=== PATIENT | male | born 1960 | race Caucasian/White ===

== ENCOUNTER → 2018-01-05 | Outpatient (CLI) | payer MEDICAID ==
[~2018-01-05] MED LIST: CATHETER FLUSH 10 ML SYR IV PRN; HYDR-2997 PO; OMEP20CA6 PO
[2018-01-05 09:07] VITALS: BP 124/80
--- NOTE | 2018-01-10 09:03 | STRESS TEST ---
DATE OF SERVICE: 01/05/2018 PROCEDURE: Resting and post exercise technetium-99m Tetrofosmin SPECT CT imaging. ORDERING PHYSICIAN: Lynda Cleaning APRN PRIMARY CARE PHYSICIAN: Luis Miguel Camarena APRN OTHER PHYSICIAN: Dr. Chen. CLINICAL DIAGNOSES: Chest pain, hypertension, hyperlipidemia, tobacco use. Baseline images were carried out after injection of 10.39 mCi of technetium-99m Tetrofosmin and this was followed by exercise on a treadmill. Heart rate responses to exercise are normal. Blood pressure response to exercise was somewhat hypertensive. There was considerable baseline artifact at peak exercise, but there did not appear to be significant ST segment depression. After the patient had attained more than 85% of maximum predicted heart rate, 29.4 mCi of technetium-99m Tetrofosmin were injected. The test was continued for another minute afterwards. The test was stopped on account of fatigue. There was no significant arrhythmia. Overall, he tolerated the procedure well. He attained 94% of maximum predicted heart rate and 11.7 METS of workload. Heart rate and blood pressure product was [address]. Review of images at rest and following stress does not indicate any significant perfusion defects consistent with significant myocardial ischemia or infarction. Gated images show normal global left ventricular systolic function and normal regional wall motion with left ventricular ejection fraction is calculated to be 59%. Left upper end diastolic volume is 77 mL. TID is absent (1.01). CONCLUSIONS: 1. No evidence of any significant myocardial ischemia or infarction on this study. 2. Normal regional wall motion. 3. Normal global left ventricular systolic function with a calculated ejection fraction of 59%. 4. Hypertensive blood pressure response to exercise. Job ID: [id number] DocumentID: [id number] Dictated Date: 01/10/2018 08:16:41 Spot Cleaner Date: 01/10/2018 09:03:12 Dictated By: LOUISA CHEN MD, MA, FACP, FACC,
== END ==
LOC: CARD 06:59
PROVIDERS: ATTEND Nurse Practitioner Family
DX: I10 Essential (primary) hypertension (principal); R07.89 Other chest pain; E78.5 Hyperlipidemia, unspecified; Z72.0 Tobacco use
CPT/HCPCS: 78452; 93017; 93306

== ENCOUNTER 2018-09-08 19:41 | Emergency (ER) | payer SELFPAY, MEDICAID | END 2018-09-08 21:58 | disposition home or self-care (01) | LOC: ER 19:41 ==

== ENCOUNTER → 2020-05-05 | Outpatient (CLI) | payer MEDICAID ==
[~2020-05-05] MED LIST changes: +AMOX-358 PO; -CATHETER FLUSH 10 ML SYR IV PRN; +METH4TAB PO
--- NOTE | 2020-05-05 11:02 | Diagnostic Imaging Report ---
CLINICAL INDICATION: Patient has chronic back pain. EXAM: MRI of the lumbar spine performed without IV contrast. Sagittal T2, sagittal T1, sagittal T2 fat-sat, and axial T2. COMPARISON: None. FINDINGS: There is no acute lumbar spine fracture or dislocation. There is small amount of Modic type I degenerative signal changes involving the L2-L3 and L3-L4 endplates. There is Modic type II degenerative signal changes seen from the T12-L5 levels. There is a small intraosseous hemangioma or focal fatty infiltration involving the L5 vertebra. The visualized portions of the distal thoracic spinal cord, conus medullaris, and cauda equina nerve roots are unremarkable. The conus medullaris tip is seen at the upper L1 vertebral body level. There is no significant paraspinal soft tissue abnormality. There are degenerative spurs and facet arthropathy involving the lumbar spine. L1-L2: There is no significant central spinal canal or neural foramen narrowing. There is no significant disc bulge. L2-L3: There is diffuse disc bulge with kdmk-nr-btjanyed loss of disc space height. There are disc spurs extending into the foraminal regions bilaterally. There is amhk-bq-mpyvezvk bilateral facet arthropathy. There is moderate right neural foramen narrowing and mild left neural foramen narrowing. There is dffn-ga-mjilxvgw central canal stenosis. L3-L4: There is mild diffuse disc bulge with small disc spurs extending into the foraminal regions bilaterally. There is mild bilateral neural foramen narrowing. There is mild bilateral facet arthropathy. There is no significant central canal narrowing. L4-L5: There is moderate bilateral facet arthropathy/hypertrophy. There is a diffuse disc bulge with mild loss of disc space height. There is no significant central canal narrowing. There is mild right neural foramen narrowing and fmbj-fz-sahssmfp left neural foramen narrowing. L5-S1: There is upvf-ut-uwmdouoq bilateral facet arthropathy. There is no significant central spinal canal or neural foramen narrowing. IMPRESSION: 1: There is moderate multilevel lumbar spine degenerative disc disease with diffuse disc bulges, disc spurs and facet arthropathy. This is described in detail above. Dictated by: Dictated on workstation # [id number]
== END ==
LOC: RAD 09:12
PROVIDERS: ATTEND Nurse Practitioner Family
DX: M47.817 Spondylosis without myelopathy or radiculopathy, lumbosacral region (principal); M51.36 Other intervertebral disc degeneration, lumbar region; M51.26 Other intervertebral disc displacement, lumbar region; M31.9 Necrotizing vasculopathy, unspecified; K59.9 Functional intestinal disorder, unspecified
CPT/HCPCS: 72148

== ENCOUNTER 2022-02-24 16:32 | Emergency (ER) | payer MEDICAID ==
[~2022-02-24] VITALS: Ht 180 cm; Wt 92.5 kg
[2022-02-24 17:01] LABS: BASOPHILS % (AUTO) 0 % (0-10); EOSINOPHILS # (AUTO) 0.1 10^3/uL (0.0-0.3); EOSINOPHILS % (AUTO) 1 % (0-10); HEMATOCRIT 44 % (40-54); HEMOGLOBIN 14.8 g/dL (13.3-17.7); LYMPHOCYTES # (AUTO) 1.7 10^3/uL (1.0-4.0); LYMPHOCYTES % (AUTO) 23 % (12-44); MEAN CORPUSCULAR HEMOGLOBIN 29 pg (25-34); MEAN CORPUSCULAR HGB CONC 34 g/dL (32-36); MEAN CORPUSCULAR VOLUME 86 fL (80-99); MEAN PLATELET VOLUME 9.6 fL (9.0-12.2); MONOCYTES # (AUTO) 0.5 10^3/uL (0.0-1.0); MONOCYTES % (AUTO) 7 % (0-12); NEUTROPHILS # (AUTO) 4.8 10^3/uL (1.8-7.8); NEUTROPHILS % (AUTO) 67 % (42-75); PLATELET COUNT 177 10^3/uL (130-400); WHITE BLOOD COUNT 7.2 10^3/uL (4.3-11.0)
--- NOTE | 2022-02-24 17:05 | ED Cardiac General ---
History of Present Illness General Chief Complaint: Chest Pain Stated Complaint: ARM NUMBNESS AND TINGLING, HIGH BLOOD PRESURE History of Present Illness Date Seen by Provider: Feb 24, 2022 Time Seen by Provider: 16:42 Initial Comments 62 year old male presents for numbness and tingling in left neck and arm for the last few weeks. No symptoms specifically today. Evaluated at [facility] and referred here. He has previously seen Dr. See for cardiac work-up and had a provider at [facility], he was on blood pressure medicine and a statin for cholesterol. He stopped both of these medications approximately 1 year ago. He does not take aspirin daily. Mother and father both have a history of CAD and are . He smokes approximately half pack of cigarettes daily and drinks alcohol approximately 4 days a week. He does aggressive strenuous work. No use of Nitro or dx of angina. Timing/Duration: other Severity: mild Activities at Onset: none NTG SL HAND MOLDER: No ASA po HAND MOLDER: Yes Associated Systoms: No Chest Pain, No Cough, No Diaphoresis, No Fever/Chills, No Malaise, No Nausea/Vomiting, No Shortness of Air, No Syncope, No Weakness (GARRICK ACEVES) Allergies and Home Medications Allergies Coded Allergies: NKANo Known Allergies (Verified Allergy, Unknown, 11/17/06) Patient Home Medication List Home Medication List Reviewed: Yes (GARRICK ACEVES) Amoxicillin/Potassium Clav (Augmentin 875-125 Tablet) 1 Each Tablet, 1 EACH PO BID Prescribed by: ANNI CEBALLOS on 09/08/182153 Ibuprofen (Ibuprofen) 800 Mg Tablet, 800 MG PO Q8H PRN for PAIN Prescribed by: GARRICK ACEVES on 02/24/221745 Lisinopril/Hydrochlorothiazide (Lisinopril-Hctz 10-12.5 mg Tab) 10 Mg-12.5 Mg Tablet, 1 EACH PO DAILY Prescribed by: GARRICK ACEVES on 02/24/221745 Methylprednisolone (Medrol) 4 Mg Tab.ds.pk, 4 MG PO UD Prescribed by: ANNI CEBALLOS on 09/08/182153 Omeprazole (Prilosec) 20 Mg Capsule.dr, 20 MG PO DAILY Prescribed by: MADDI PAN on 03/17/15 1430 Review of Systems Review of Systems Constitutional: no symptoms reported, see HPI Cardiovascular: See HPI; Denies Chest Pain (pain left jaw and left arm, intermittently) Gastrointestinal: No Symptoms Reported, See HPI (GARRICK ACEVES CINDY) All Other Systems Reviewed Negative Unless Noted: Yes (GARRICK ACEVES) Past Bgxjwiy-Sojndd-Jqdrpl Hx Seasonal Allergies Seasonal Allergies: No (KETANGARRICK WHITE) Past Medical History Surgeries: Yes (RIGHT HAND; EIGHT ELBOW; EGD) Respiratory: No Cardiac: No Neurological: No Reproductive Disorders: No Genitourinary: No Gastrointestinal: No Musculoskeletal: No Endocrine: No HEENT: No Cancer: No Psychosocial: No Integumentary: No Blood Disorders: No (KETANGARRICK WHITE) Family Medical History Reviewed Nursing Family Hx (GARRICK ACEVES CINDY) Physical Exam Vital Signs Vital Signs - First Documented 02/24/22 16:39 Temp 36.8 Pulse 82 Resp 14 B/P (MAP) 162/104 (123) Pulse Ox 98 O2 Delivery Room Air (MARYBETH MOREL MD) Vital Signs Capillary Refill : (GARRICK ACEVESP) Height, Weight, BMI Height: 5'11.00" Weight: 190lbs. oz. 86.534989og; BMI Method:Stated General Appearance: No Apparent Distress, WD/WN Neck: Full Range of Motion, Supple; No Limited Range of Motion; Tender Lateral (left); No Tender Midline Respiratory: Chest Non Tender, Lungs Clear, Normal Breath Sounds Cardiovascular: Regular Rate, Rhythm, No Edema, No Murmur, Normal Peripheral Pulses Gastrointestinal: Normal Bowel Sounds, Non Tender, Soft, Distended Neurologic/Psychiatric: Alert, Oriented x3, No Motor/Sensory Deficits, Normal Mood/Affect Skin: Normal Color, Warm/Dry (GARRICK ACEVES) Progress/Results/Core Measures Results/Orders Lab Results Laboratory Tests Test 02/24/22 16:50 Range/Units White Blood Count 7.2 4.3-11.0 10^3/uL Red Blood Count 5.07 4.30-5.52 10^6/uL Hemoglobin 14.8 13.3-17.7 g/dL Hematocrit 44 40-54 % Mean Corpuscular Volume 86 80-99 fL Mean Corpuscular Hemoglobin 29 25-34 pg Mean Corpuscular Hemoglobin Concent 34 32-36 g/dL Red Cell Distribution Width 13.2 10.0-14.5 % Platelet Count 177 130-400 10^3/uL Mean Platelet Volume 9.6 9.0-12.2 fL Immature Granulocyte % (Auto) 1 % Neutrophils (%) (Auto) 67 42-75 % Lymphocytes (%) (Auto) 23 12-44 % Monocytes (%) (Auto) 7 0-12 % Eosinophils (%) (Auto) 1 0-10 % Basophils (%) (Auto) 0 0-10 % Neutrophils # (Auto) 4.8 1.8-7.8 10^3/uL Lymphocytes # (Auto) 1.7 1.0-4.0 10^3/uL Monocytes # (Auto) 0.5 0.0-1.0 10^3/uL Eosinophils # (Auto) 0.1 0.0-0.3 10^3/uL Basophils # (Auto) 0.0 0.0-0.1 10^3/uL Immature Granulocyte # (Auto) 0.1 0.0-0.1 10^3/uL Prothrombin Time 13.5 12.2-14.7 SEC INR Comment 1.0 0.8-1.4 Activated Partial Thromboplast Time 32 24-35 SEC Sodium Level 142 135-145 MMOL/L Potassium Level 3.7 3.6-5.0 MMOL/L Chloride Level 106 98-107 MMOL/L Carbon Dioxide Level 23 21-32 MMOL/L Anion Gap 13 5-14 MMOL/L Blood Urea Nitrogen 15 7-18 MG/DL Creatinine 1.03 0.60-1.30 MG/DL Estimat Glomerular Filtration Rate 83 BUN/Creatinine Ratio 15 Glucose Level 87 70-105 MG/DL Calcium Level 9.8 8.5-10.1 MG/DL Corrected Calcium 8.5-10.1 MG/DL Magnesium Level 2.1 1.6-2.4 MG/DL Total Bilirubin 0.5 0.1-1.0 MG/DL Aspartate Amino Transf (AST/SGOT) 26 5-34 U/L Alanine Aminotransferase (ALT/SGPT) 32 0-55 U/L Alkaline Phosphatase 76 40-136 U/L Myoglobin 57.8 10.0-92.0 NG/ML Troponin I < 0.028 <0.028 NG/ML B-Type Natriuretic Peptide 30.8 <100.0 PG/ML Total Protein 7.2 6.4-8.2 GM/DL Albumin 4.6 H 3.2-4.5 GM/DL (MARYBETH MOREL MD) Vital Signs/I&O 02/24/22 02/24/22 16:39 17:59 Temp 36.8 Pulse 82 66 Resp 14 10 B/P (MAP) 162/104 (123) 120/86 Pulse Ox 98 93 O2 Delivery Room Air Room Air (MARYBETH MOREL MD) Progress Progress Note : Time: 16:42 Progress Note Patient seen and evaluated, will obtain EKG, chest x-ray, and labs. 1800 labs, EKG and chest x-ray all within normal, blood pressure improved after metoprolol 5 mg IV. Discussed importance of adhering to a DASH diet, taking blood pressure and cholesterol medicine as prescribed by his PCP or cardiolo gist, and keeping all follow up appts. Some of the neck pain is probably from arthritis or muscle strain for intensive work. Discharge instructions and return precautions reviewed with the patient. (GARRICK ACEVES) Initial ECG Impression Date: Feb 24, 2022 Initial ECG Impression Time: 16:47 Initial ECG Rate: 80 Initial ECG Rhythm: Normal Sinus Initial ECG Intervals: Normal Initial ECG Intervals AK 152, QRS 90, QT 374, QTc 409. [place] P 41 RR 11, T10. Initial ECG Impression: Normal Initial ECG Comparisson: Unchanged (GARRICK ACEVES) Diagnostic Imaging Diagonstic Imaging: Xray Plain Films/CT/US/NM/MRI: chest Comments NAME: DUNG REYNOLDS [facility] REC#: [id number] PT STATUS: REG ER : 1960 PHYSICIAN: GARRICK ACEVES ADMIT DATE: 02/24/22/ER Draft Date of Exam:02/24/22 CHEST 1 VIEW, AP/PA ONLY INDICATION: Chest pain. COMPARISON: 09/08/2018. TECHNIQUE: Single frontal radiograph of the chest dated 02/24/2022. FINDINGS: The cardiac silhouette is within normal limits in size. No significant pulmonary vascular congestion. The lungs are clear. No pleural effusion. No pneumothorax. No acute osseous abnormality. IMPRESSION: Similar-appearing examination without acute cardiopulmonary abnormality. Dictated on workstation # [id number] Dict: 02/24/221702 Trans: 02/24/221707 [id number] Interpreted by: DRU RINCON MD Electronically signed by: Reviewed: Reviewed by Me (GARRICK ACEVES) Departure Impression Primary Impression: CAD (coronary artery disease) Qualified Codes: I25.118 - Atherosclerotic heart disease of [place] coronary artery with other forms of angina pectoris Additional Impressions: Hypertension Qualified Codes: I10 - Essential (primary) hypertension Neck pain Disposition: HOME, SELF-CARE Condition: Improved Departure-Patient Inst. Decision time for Depature: 17:40 (GARRICK ACEVES) Referrals: [facility] (PCP/Family) Primary Care Physician LOUISA SEE MD [facility] Patient Instructions: Coronary Artery Disease (DC), DASH Diet, High Blood Pressure (DC) Add. Discharge Instructions: Take aspirin 81 mg once daily. Take your blood pressure medicine every day as directed. Call Dr. See's office for an appointment. Call [facility] to establish an appointment with a primary care provider. Follow the Dash diet. Use the ibuprofen every 8 hours as needed for neck or arm pain. Return to the emergency department if you are having chest pain or pressure, pa in radiating into your neck or left arm. All discharge instructions reviewed with patient and/or family. Voiced understanding. Scripts Ibuprofen (Ibuprofen) 800 Mg Tablet 800 MG PO Q8H PRN for PAIN, #40 TAB 2 Refills Prov: GARRICK ACEVES 02/24/22 Lisinopril/Hydrochlorothiazide (Lisinopril-Hctz 10-12.5 mg Tab) 10 Mg-12.5 Mg Tablet 1 EACH PO DAILY for 30 Days, #30 TAB 1 Refill Prov: GARRICK ACEVES 02/24/22 ATTENDING PHYSICIAN NOTE: I was physically present as attending physician in the emergency department during the care of this patient, but I was not directly involved in the decision making or delivery of care for this patient. (MARYBETH MOREL MD) Copy Copies To 1: LOUISA SEE MD [facility] GARRICK ACEVES Feb 24, 2022 17:04 MARYBETH MOREL MD Feb 25, 2022 06:23
--- NOTE | 2022-02-24 17:08 | Diagnostic Imaging Report ---
INDICATION: Chest pain. COMPARISON: 09/08/2018. TECHNIQUE: Single frontal radiograph of the chest dated 02/24/2022. FINDINGS: The cardiac silhouette is within normal limits in size. No significant pulmonary vascular congestion. The lungs are clear. No pleural effusion. No pneumothorax. No acute osseous abnormality. IMPRESSION: Similar-appearing examination without acute cardiopulmonary abnormality. Dictated by: Dictated on workstation # [id number]
[2022-02-24 17:13] LABS: ALBUMIN 4.6 GM/DL (3.2-4.5); CHLORIDE 106 MMOL/L (98-107); POTASSIUM 3.7 MMOL/L (3.6-5.0); SODIUM 142 MMOL/L (135-145)
[2022-02-24 17:15] LABS: CALCIUM 9.8 MG/DL (8.5-10.1)
[2022-02-24 17:16] LABS: GLUCOSE 87 MG/DL (70-105); TOTAL PROTEIN 7.2 GM/DL (6.4-8.2)
[2022-02-24 17:17] LABS: CARBON DIOXIDE 23 MMOL/L (21-32)
[2022-02-24 17:18] LABS: BILIRUBIN,TOTAL 0.5 MG/DL (0.1-1.0)
[2022-02-24 17:19] LABS: ALKALINE PHOSPHATASE 76 U/L (40-136); CREATININE SERUM 1.03 MG/DL (0.60-1.30); GFR ESTIMATED 83
[2022-02-24 17:20] LABS: BUN/CREATININE RATIO 15
[2022-02-24 17:22] LABS: ALANINE AMINOTRANSFERASE 32 U/L (0-55)
[2022-02-24 17:23] LABS: MAGNESIUM 2.1 MG/DL (1.6-2.4)
[2022-02-24 17:26] LABS: PROTHROMBIN TIME PATIENT 13.5 SEC (12.2-14.7)
[2022-02-24] MEDS ORDERED: meTOprolol 5 MG/5 ML (LOPRESSOR) VIAL IV ONE (17:30)
[2022-02-24] MEDS ORDERED: IBUP-1780 PO (17:46)
[2022-02-24] MEDS ORDERED: LISI1TAB44 PO (17:46)
[2022-02-24 17:59] VITALS: BP 120/86
== END 2022-02-24 17:55 | disposition home or self-care (01) ==
LOC: EDUNIT# 16:32 → ER 16:35
DX: I10 Essential (primary) hypertension (principal); I25.10 Atherosclerotic heart disease of native coronary artery without angina pectoris; M54.2 Cervicalgia; E78.00 Pure hypercholesterolemia, unspecified; F17.210 Nicotine dependence, cigarettes, uncomplicated; Z79.899 Other long term (current) drug therapy; Z28.310 Unvaccinated for COVID-19
CPT/HCPCS: 36415; 71045; 80053; 83735; 83874; 83880; 84484; 85025; 85610; 85730; 93005; 93041

== ENCOUNTER → 2022-03-08 | Outpatient (CLI) | payer BC, MEDICAID ==
[~2022-03-08] MED LIST changes: +CATHETER FLUSH 10 ML SYR IVP PRN; +IBUP-1780 PO; +LISI1TAB44 PO
[2022-03-08 13:15] VITALS: BP 168/95
--- NOTE | 2022-03-09 19:23 | STRESS TEST ---
DATE OF SERVICE: 03/08/2022 RESTING AND POST EXERCISE TECHNETIUM-99M TETROFOSMIN SPECT CT IMAGING Baseline images were carried out after injection of 10.04 mCi of technetium-99m Tetrofosmin. Subsequently, exercise was carried out on a treadmill. Olvin protocol was employed. He exercised for a total of 10 minutes. After he had attained the target heart rate and had indicated that he would not be able to go for more than another minute, 30.5 mCi of technetium-99m Tetrofosmin were injected, and the exercise was continued for another minute. Test was stopped on account of fatigue. The electrocardiogram did not change significantly. Review of images at rest and following stress does not show perfusion defects consistent with significant myocardial ischemia or infarction. Some degree of diaphragmatic attenuation seen both at rest and following regadenoson infusion. Gated images show normal global left ventricular systolic function with normal regional wall motion, including the diaphragmatic wall of the left ventricle. Left ventricular ejection fraction is calculated to be 62%. CONCLUSIONS: 1. No evidence of any significant myocardial ischemia or infarction on this study. 2. Normal regional wall motion. 3. Normal global left ventricular systolic function with a calculated ejection fraction of 62%. Job ID: [id number] DocumentID: [id number] Dictated Date: 03/09/2022 15:49:51 Manager Ccu Date: 03/09/2022 19:23:27 Dictated By: LOUISA CHEN MD, MA, FACP, FACC,
== END ==
LOC: CARD 12:15
PROVIDERS: ATTEND Internal Medicine Cardiovascular Disease
DX: R07.89 Other chest pain (principal)
CPT/HCPCS: 78452; 93017; A9502

== ENCOUNTER → 2022-03-11 | Outpatient (CLI) | payer BC, MEDICAID ==
[~2022-03-11] MED LIST changes: +CATHETER FLUSH 10 ML SYR IV PRN; -CATHETER FLUSH 10 ML SYR IVP PRN; +HOLD METFORMIN - RECEIVED CONTRAST 20 ML VIAL IV SCH; +IOHEXOL 350 MG/ML 100 ML (OMNIPAQUE 350) VIAL IV ONE; +NS 100 ML (IVPB) BAG IV ONE
--- NOTE | 2022-03-11 16:01 | Diagnostic Imaging Report ---
CLINICAL INDICATIONS: Patient with left neck mass. EXAM: Axial CT scan of the neck soft tissue performed with 75 mL Omnipaque 350 IV contrast. Sagittal and coronal reformatted images are created. Auto Exposure Controls were utilized during the CT exam to meet ALARA standards for radiation dose reduction. COMPARISON: None. FINDINGS: There is no neck soft tissue abnormality. There is no neck soft tissue mass, fluid collection or fat stranding. There is no lymphadenopathy. The nasopharynx, oropharynx, hypopharynx, laryngeal soft tissue structures are unremarkable. Salivary glands are unremarkable. Thyroid gland is unremarkable. Limited visualization intracranial structures are unremarkable. There is no lymphadenopathy. Visualized upper lung mcdonough are clear. There are degenerative spurs involving the mid to lower cervical spine. There is mild mucosal thickening involving the frontal sinus and ethmoid sinus. There is complete consolidation left maxillary sinus with peripheral mucosal thickening and fluid. Mastoid air cells are clear. Orbits and globes are unremarkable. IMPRESSION: 1: There is no significant neck soft tissue abnormality, lymphadenopathy or soft tissue mass. 2: There is complete consolidation of maxillary sinus and mild consolidation involving the ethmoid sinus and sphenoid sinus on the left in a ostiomeatal unit obstruction pattern. 3: There is cervical spine degenerative disease. Dictated by: Dictated on workstation # [id number]
--- NOTE | 2022-03-11 17:32 | Diagnostic Imaging Report ---
CT chest screening w/o TECHNIQUE: Low-dose unenhanced CT of the chest was performed according to the screening protocol. Coronal MIP and sagittal MPR reformats are created. Automatic exposure controls were utilized to keep dose as low as reasonably achievable. INDICATION: Current smoker with 40 pack year history of smoking. COMPARISON: None available. FINDINGS: Pulmonary findings: No abnormality in the trachea. No pneumonia or edema. There are no suspicious pulmonary nodules. Extrapulmonary findings: No mediastinal or axillary lymphadenopathy. No pericardial or pleural effusion. Heart is normal in size. Normal caliber thoracic aorta. Limited assessment of upper abdomen is unremarkable. No worrisome focal osseous lesion. IMPRESSION: Baseline screening exam is negative for features of clinically active lung cancer. Lung-RADS category: 1 - Negative Recommendations: Continued annual screening with low-dose CT in 12 months. Dictated on workstation # [id number]
== END ==
LOC: RAD 14:15
PROVIDERS: ATTEND Nurse Practitioner Family
DX: M47.812 Spondylosis without myelopathy or radiculopathy, cervical region (principal); J18.1 Lobar pneumonia, unspecified organism
CPT/HCPCS: 70491; 71271